=== PATIENT | male | born 1945 | race Caucasian/White ===

== ENCOUNTER 2019-08-13 14:11 | Inpatient (IN) ==
[2019-08-13] MEDS ORDERED: OCTREOTIDE 100 MCG/ML SYRINGE IV STA (14:42)
[2019-08-13] MEDS ORDERED: ONDANSETRON 4 MG/2 ML VIAL IV STA (14:42)
[2019-08-13] MEDS ORDERED: SODIUM CHLORIDE 0.9% 1,000 ML IV STA (14:42)
[2019-08-13] MEDS ORDERED: PANTOPRAZOLE INJ 80 MG in SODIUM CHLORIDE 0.9% 100 ML IV STA (14:42)
[2019-08-13] MEDS ORDERED: SODIUM CHLORIDE 0.9% 1,000 ML IV PRN ×2 (14:45→15:56)
[2019-08-13] MEDS ORDERED: PANTOPRAZOLE 40 MG VIAL IV ONE (14:50)
[2019-08-13 14:55] LABS: Basophils # 0.1 10*3/uL (0.0-0.2); Basophils % 0.6 % (0.0-0.8); Eosinophils # 0.1 10*3/uL (0.0-0.87); Eosinophils % 0.7 % (0.00-10.9); Hematocrit 26.9 VOL% (42.0-52.0); Hemoglobin 8.9 GM/DL (14.0-18.0); Immature Granulocytes % 0.8 %; Lymphocytes # 1.6 10*3/uL (1.4-4.0); Lymphocytes % 12.4 % (21.2-54.2); Mean Corpuscular HGB Conc 33.1 GM/DL (32-36); Mean Corpuscular Volume 96.8 FL (87-102); Mean Platelet Volume 8.8 FL (9.6-12.0); Monocytes % 8.9 % (1.7-12.7); Neutrophils % 76.6 % (38.7-73.9); Platelet Count 257 T/CUMM (130-400); Red Blood Count 2.78 MC/CUMM (3.8-5.5); Red Cell Distribution Width 13.1 % (9.3-17.3); White Blood Count 12.5 T/CUMM (4-12)
[2019-08-13] MEDS ORDERED: OCTREOTIDE 100 MCG/ML SYRINGE ONE (14:56)
[2019-08-13 15:02] LABS: INR 1.1; PT Patient Result 11.6 SECS (9.6-12.2)
[2019-08-13 15:24] LABS: Alanine Aminotransferase 44 U/L (16-61); Albumin 2.7 G/DL (3.4-5.0); Alkaline Phosphatase 55 U/L (45-117); Aspartate Amino Transferase 29 U/L (0-37); Bilirubin,Total < 0.39 MG/DL (0.2-1.0); Blood Urea Nitrogen 19 MG/DL (7-18); Calcium 7.6 MG/DL (8.5-10.1); Estimated Glom Filtration Rate 111 ML/MIN; Glucose 164 MG/DL (74-106); Osmolality,Calculated 280.7 MOS/KG (273-304); Total Protein 5.6 G/DL (6.4-8.3); Troponin I < 0.015 NG/ML (0.00-0.045)
[2019-08-13] MEDS ORDERED: ONDANSETRON 4 MG/2 ML VIAL IV PRN (15:56)
[2019-08-13] MEDS ORDERED: ALBUTEROL 2.5 MG/3 ML NEB RESP TX PRN (15:56)
[2019-08-13] MEDS ORDERED: LORazepam 2 MG/1 ML VIAL IV PRN (16:04)
[2019-08-13] MEDS ORDERED: CALCIUM GLUCONATE 1,000 MG in SODIUM CHLORIDE 0.9% 100 ML IV ONE (18:00)
[2019-08-13] MEDS ORDERED: CALCIUM GLUCONATE 1,000 MG/10 ML VIAL IV ONE (18:08)
[2019-08-13] MEDS ORDERED: POLYETHYLENE GLYCOL POWDER 255 GM BOTTLE PO ONE (19:04)
[2019-08-13] MEDS: SODIUM CHLORIDE 0.9% 1,000 ML IV SCH (19:05)
[2019-08-13 20:11] LABS: Calcium 7.4 MG/DL (8.5-10.1); Osmolality,Calculated 283.5 MOS/KG (273-304)
[2019-08-14 00:59] LABS: Hematocrit 32.3 VOL% (42.0-52.0); Hemoglobin 10.5 GM/DL (14.0-18.0)
[2019-08-14 04:30] LABS: Hematocrit 31.5 VOL% (42.0-52.0); Hemoglobin 10.3 GM/DL (14.0-18.0)
[2019-08-14 04:55] LABS: Albumin 2.7 G/DL (3.4-5.0); Bilirubin,Total 0.7 MG/DL (0.2-1.0); Calcium 7.5 MG/DL (8.5-10.1); Osmolality,Calculated 284.4 MOS/KG (273-304); Total Protein 5.4 G/DL (6.4-8.3)
[2019-08-14] MEDS: SODIUM CHLORIDE 0.9% 1,000 ML IV SCH ×4 (05:15→17:49)
[2019-08-14] MEDS ORDERED: MAGNESIUM CITRATE 300 ML BOTTLE PO ONE (06:00)
[2019-08-14 08:00] LABS: Hematocrit 32.7 VOL% (42.0-52.0); Hemoglobin 10.6 GM/DL (14.0-18.0)
[2019-08-14] MEDS ORDERED: PANTOPRAZOLE 40 MG VIAL IV SCH (09:00)
[2019-08-14] MEDS ORDERED: MEPERIDINE 50 MG/1 ML VIAL ONE (11:41)
[2019-08-14] MEDS ORDERED: MIDAZOLAM 2 MG/2 ML VIAL ONE (11:42)
[2019-08-14] MEDS: THIAMINE 100 MG TABLET PO SCH (13:27)
[2019-08-14] MEDS: MULTIVITAMIN (CENTRUM) TABLET PO SCH (13:27)
[2019-08-14] MEDS: FOLIC ACID 1 MG TABLET PO SCH (13:27)
[2019-08-14 14:21] LABS: Hematocrit 31.8 VOL% (42.0-52.0); Hemoglobin 10.4 GM/DL (14.0-18.0)
[2019-08-14 16:09] LABS: Hematocrit 29.5 VOL% (42.0-52.0); Hemoglobin 9.8 GM/DL (14.0-18.0)
[2019-08-14] MEDS: PANTOPRAZOLE 40 MG TABLET PO SCH (21:26)
[2019-08-14] MEDS: CLORAZEPATE 7.5 MG TABLET PO SCH (21:26)
[2019-08-15 00:52] LABS: Hematocrit 27.5 VOL% (42.0-52.0); Hemoglobin 9.1 GM/DL (14.0-18.0)
[2019-08-15 05:49] LABS: Basophils # 0.1 10*3/uL (0.0-0.2); Basophils % 0.8 % (0.0-0.8); Eosinophils # 0.2 10*3/uL (0.0-0.87); Eosinophils % 2.9 % (0.00-10.9); Hematocrit 28.4 VOL% (42.0-52.0); Hemoglobin 9.3 GM/DL (14.0-18.0); Immature Granulocytes Absolute 0.07 #; Lymphocytes # 1.2 10*3/uL (1.4-4.0); Mean Corpuscular HGB Conc 32.7 GM/DL (32-36); Mean Corpuscular Volume 91.6 FL (87-102); Mean Platelet Volume 9.1 FL (9.6-12.0); Monocytes % 9.7 % (1.7-12.7); Neutrophils % 69.6 % (38.7-73.9); Platelet Count 149 T/CUMM (130-400); Red Cell Distribution Width 16.2 % (9.3-17.3); White Blood Count 7.3 T/CUMM (4-12)
[2019-08-15 06:28] LABS: Calcium 7.8 MG/DL (8.5-10.1); Osmolality,Calculated 278.4 MOS/KG (273-304)
[2019-08-15] MEDS ORDERED: LEVOTHYROXINE 50 MCG TABLET PO SCH (07:00)
[2019-08-15] MEDS: THIAMINE 100 MG TABLET PO SCH (09:04)
[2019-08-15] MEDS: CLORAZEPATE 7.5 MG TABLET PO SCH (09:04)
[2019-08-15] MEDS: PANTOPRAZOLE 40 MG TABLET PO SCH (09:04)
[2019-08-15] MEDS: FOLIC ACID 1 MG TABLET PO SCH (09:04)
[2019-08-15] MEDS: MULTIVITAMIN (CENTRUM) TABLET PO SCH (09:04)
[2019-08-15 12:26] VITALS: BP 149/86
== END 2019-08-15 12:12 | disposition home or self-care (01) | DRG 377 ==
LOC: EDBD → EDUNIT# → N.ED 14:11 → N.EDINP 15:56 → SUATTDRO 15:56 → N.CC 18:48 → N.5E 08-14 13:58
PROVIDERS: ADMIT Internal Medicine; ATTEND Internal Medicine